=== PATIENT | female | born 1970 | race Caucasian/White ===

== ENCOUNTER 2022-03-01 07:50 | Outpatient (CLI) | payer BC | END 2022-03-01 07:51 | disposition home or self-care (01) | LOC: CSHMAMMO 07:50 | PROVIDERS: ATTEND Obstetrics & Gynecology | DX: Z12.31 Encounter for screening mammogram for malignant neoplasm of breast (principal); Z98.890 Other specified postprocedural states | CPT/HCPCS: 77063; 77067 ==

== ENCOUNTER 2023-06-20 13:13 | Outpatient (CLI) | payer BC | END 2023-06-20 13:14 | disposition home or self-care (01) | LOC: CSHMAMMO 13:13 | PROVIDERS: ATTEND Obstetrics & Gynecology | DX: Z12.31 Encounter for screening mammogram for malignant neoplasm of breast (principal); Z98.890 Other specified postprocedural states | CPT/HCPCS: 77063; 77067 ==

== ENCOUNTER 2024-07-01 11:44 | Outpatient (CLI) | payer BC | END 2024-07-01 11:45 | LOC: CSHMAMMO 11:44 | PROVIDERS: ATTEND Obstetrics & Gynecology | DX: Z12.31 Encounter for screening mammogram for malignant neoplasm of breast (principal) | CPT/HCPCS: 77063; 77067 ==